=== PATIENT | male | born 2000 | race American Indian/Alaskan Native ===

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

== ENCOUNTER 2021-04-01 04:24 | Emergency (ER) | payer SELFPAY ==
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
[2021-04-01] MEDS ORDERED: Lidocaine 1% with EPINEPHrine 1:100,000 20 ML MDV INJECT ONE (04:57)
[2021-04-01 05:14] LABS: BENZODIAZEPINE,URINE NEGATIVE (NEGATIVE); MDMA (ECSTASY), URINE NEGATIVE (NEGATIVE); METHADONE,URINE NEGATIVE (NEGATIVE); METHAMPHETAMINES,URINE NEGATIVE (NEGATIVE); OPIATES,URINE NEGATIVE (NEGATIVE); TCA,URINE NEGATIVE (NEGATIVE)
[2021-04-01 05:15] LABS: AMPHETAMINES,URINE NEGATIVE (NEGATIVE); BARBITURATES,URINE NEGATIVE (NEGATIVE); OXYCODONE,URINE NEGATIVE (NEGATIVE); PHENCYCLIDINE,URINE NEGATIVE (NEGATIVE)
[2021-04-01 05:22] LABS: ANION GAP 12.2 mEq/L (7-13); CHLORIDE,CL 106 mmol/L (98-107); SODIUM,NA 141 mmol/L (136-145)
[2021-04-01 05:25] LABS: ACETAMINOPHEN 0 ug/mL (10-30 (Therapeutic))
[2021-04-01] MEDS ORDERED: Bacitracin Oint 1 GM U/D Packet TOP ONE (05:30)
== END 2021-04-01 07:42 | disposition home or self-care (01) ==
LOC: DL.ED 04:24
DX: S61.512A Laceration without foreign body of left wrist, initial encounter (principal); Z91.048 Other nonmedicinal substance allergy status; Z72.0 Tobacco use; Z20.822 Contact with and (suspected) exposure to COVID-19; X78.1XXA Intentional self-harm by knife, initial encounter
CPT/HCPCS: 12002; 36415; 80053; 80143; 80179; 80305-QW; 80307; 81003; 83735; 84443; 85025; 99284-25; U0002

== ENCOUNTER 2021-04-15 11:13 | Emergency (ER) | payer SELFPAY ==
[2021-04-15] MEDS ORDERED: Cephalexin 500 MG Cap PO ONE (11:44)
--- NOTE | 2021-04-15 11:44 | EDM.PDOC ---
ED HPI GENERAL MEDICAL PROBLEM - General Chief Complaint: Wound Recheck Stated Complaint: RETURN FOR STITCHES REMOVAL Time Seen by Provider: 04/15/21 11:43 Source of Information: Reports: Patient, Old Records, RN, RN Notes Reviewed History Limitations: Reports: No Limitations - History of Present Illness INITIAL COMMENTS - FREE TEXT/NARRATIVE: Pt presents to ER with c/o needing sutures removed from his left wrist. Pt states he received the sutures on 04/01/21. Yesterday he noticed the wound began to "smell like rot". Denies pain. Onset Date: 04/01/21 Duration: Constant Location: Reports: Upper Extremity, Left Quality: Reports: Other (Denies pain) Severity: Moderate Improves with: Reports: None Worsens with: Reports: None Associated Symptoms: Reports: No Other Symptoms - Related Data Allergies Allergy/AdvReac Type Severity Reaction Status Date / Time poison evette extract Allergy Rash Verified 12/18/19 06:06 [Poison Evette Extract] Home Meds: Home Meds . [No Known Home Meds] 01/31/14 [History] Past Medical History - Past Health History Medical/Surgical History: Denies Medical/Surgical History HEENT History: Reports: None Cardiovascular History: Reports: None Respiratory History: Reports: None Gastrointestinal History: Reports: None Genitourinary History: Reports: None Musculoskeletal History: Reports: None Neurological History: Reports: None Psychiatric History: Reports: None Endocrine/Metabolic History: Reports: None Hematologic History: Reports: None Immunologic History: Reports: None Oncologic (Cancer) History: Reports: None Dermatologic History: Reports: None - Infectious Disease History Infectious Disease History: Reports: None - Past Surgical History Head Surgeries/Procedures: Reports: None Social & Family History - Family History Family Medical History: No Pertinent Family History - Caffeine Use Caffeine Use: Reports: Soda - Living Situation & Occupation Living situation: Reports: with Family ED ROS GENERAL - Review of Systems Review Of Systems: Comprehensive ROS is negative, except as noted in HPI. ED EXAM, SKIN/RASH Exam: See Below Exam Limited By: No Limitations General Appearance: Alert, WD/WN, No Apparent Distress Respiratory/Chest: No Respiratory Distress Cardiovascular: Normal Peripheral Pulses Extremities: Normal Range of Motion, Normal Capillary Refill, Other (Left wrist wound with sutures in place, mild swelling of soft tissue with foul odor and mild erythema.) Neurological: Alert, Oriented, No Motor/Sensory Deficits Psychiatric: Normal Mood Skin: Warm, Dry Course - Orders/Labs/Meds Meds: Medications Discontinued Medications Generic Name Dose Route Start Last Admin Trade Name Dannielle PRN Reason Stop Dose Admin Acetaminophen 1,000 mg 04/15/21 11:55 Acetaminophen 500 Mg Tab PO 04/15/21 11:56 ONETIME ONE Bacitracin 1 dose 04/15/21 11:45 Bacitracin Oint 1 Gm U/D Packet TOP 04/15/21 11:46 ONETIME ONE Cephalexin 500 mg 04/15/21 11:44 Cephalexin 500 Mg Cap PO 04/15/21 11:45 ONETIME ONE - Re-Assessments/Exams Free Text/Narrative Re-Assessment/Exam: 04/15/21 12:04 Sutures removed by RN and dressing placed. Departure - Departure Time of Disposition: 11:48 Disposition: Home, Self-Care 01 Condition: Good Clinical Impression: Laceration of left wrist with complication Qualifiers: Encounter type: subsequent encounter Qualified Code(s): S61.512D - Laceration without foreign body of left wrist, subsequent encounter - Discharge Information *PRESCRIPTION DRUG MONITORING PROGRAM REVIEWED*: Not Applicable *COPY OF PRESCRIPTION DRUG MONITORING REPORT IN PATIENT AMY: Not Applicable Instructions: Wound Infection, [id number] Forms: ED Department Discharge Additional Instructions: Rx: Cephalexin 500mg Rx: Bactroban (Mupirocin) Ointment 2% Wash the left wrist wound with antibacterial soap twice a day. Follow up in clinic if not improving as expected.
[2021-04-15] MEDS ORDERED: Bacitracin Oint 1 GM U/D Packet TOP ONE (11:45)
[2021-04-15] MEDS ORDERED: Acetaminophen 500 MG Tab PO ONE (11:55)
== END 2021-04-15 12:15 | disposition home or self-care (01) ==
LOC: DL.ED 11:13
DX: S61.512D Laceration without foreign body of left wrist, subsequent encounter (principal); Z91.048 Other nonmedicinal substance allergy status; X58.XXXD Exposure to other specified factors, subsequent encounter
CPT/HCPCS: 99281; A9270

== ENCOUNTER 2023-08-23 07:32 | Emergency (ER) | payer SELFPAY ==
[2023-08-23] MEDS: Sodium Chloride 0.9% 10 ML Syringe FLUSH PRN (07:50)
[2023-08-23] MEDS: Sodium Chloride 0.9% 1,000 ML IV ONE (07:50)
[2023-08-23 07:57] LABS: BASOPHILS PERCENT AUTO 0.1 % (0.0-1.0); EOSINOPHILS PERCENT AUTO 0.1 % (1.0-3.0); HEMATOCRIT 47.1 % (40.0-54.0); HEMOGLOBIN 16.3 g/dL (14.0-18.0); LYMPHOCYTES PERCENT AUTO 19.7 % (20.5-50.1); MEAN CORPUSCULAR HEMOGLOBIN 32.3 pg (27.0-34.0); MEAN CORPUSCULAR HGB CONC 34.6 g/dL (33.0-35.0); MEAN CORPUSCULAR VOLUME 93.5 fL (80-100); MONOCYTES PERCENT AUTO 10.1 % (2-8); PLATELET COUNT,PLT 298 10^3/uL (150-450); RED BLOOD CELL COUNT 5.04 10^6/uL (4.6-6.2); WHITE BLOOD CELL COUNT,WBC 8.7 10^3/uL (5.0-10.0)
[2023-08-23 08:12] LABS: ALBUMIN 4.4 g/dL (3.4-5.0); ANION GAP 14.9 mEq/L (7-13); BILIRUBIN TOTAL 0.2 mg/dL (0.2-1.0); CALCIUM 8.6 mg/dL (8.5-10.1); CREATININE 0.88 mg/dL (0.70-1.30); EST CRCL DRUG DOSING (CG) 133.47 mL/min; POTASSIUM,K 3.9 mmol/L (3.5-5.1); PROTEIN TOTAL,TP 8.6 g/dL (6.4-8.2)
[2023-08-23 08:17] LABS: PTT,PARTIAL THROMBOPLSTIN TIME 26.5 SEC (22.0-34.0)
== END 2023-08-23 09:28 | disposition home or self-care (01) ==
LOC: DL.ED 07:32
DX: S06.0XAA Concussion with loss of consciousness status unknown, initial encounter (principal); F10.929 Alcohol use, unspecified with intoxication, unspecified; Z91.048 Other nonmedicinal substance allergy status; X58.XXXA Exposure to other specified factors, initial encounter; Y90.6 Blood alcohol level of 120-199 mg/100 ml
CPT/HCPCS: 36415; 70450; 72125; 80053; 80307; 82150; 83690; 85025; 85610; 85730; 96360; 96361; 99283; 99285; J7030; J3490